=== PATIENT | male | born 1965 | race Caucasian/White ===

== ENCOUNTER 2020-04-22 12:32 | Emergency (ER) | payer OTHER ==
[~2020-04-22] VITALS: Ht 170.2 cm; Wt 83.5 kg
[2020-04-22 12:50] VITALS: BP 128/112
--- NOTE | 2020-04-22 14:22 | NUR ---
c/.o severe nausea and headaches x 1 wk---exposed to covid-19 by family member known to be positive
[2020-04-22 14:30] VITALS: BP 131/97
--- NOTE | 2020-04-22 14:30 | NUR ---
Patient discharged with v/s stable. Written and verbal after care instructions given and explained. Patient alert, oriented and verbalized understanding of instructions. Ambulatory with steady gait. All questions addressed prior to discharge. ID band removed. Patient advised to follow up with PMD. Rx of tylenol with codeine/ zofran given. Patient educated on indication of medication including possible reaction and side effects. Opportunity to ask questions provided and answered.
--- NOTE | 2020-04-22 14:30 | NUR ---
covid-19 swab collected
== END 2020-04-22 14:30 | disposition home or self-care (01) ==
LOC: MED 12:32
DX: R51 Headache (principal); R11.0 Nausea; E11.9 Type 2 diabetes mellitus without complications; K21.9 Gastro-esophageal reflux disease without esophagitis; I10 Essential (primary) hypertension; Z20.828 Contact with and (suspected) exposure to other viral communicable diseases; Z98.890 Other specified postprocedural states
CPT/HCPCS: 99283; U0003